=== PATIENT | male | born 1945 | race Caucasian/White ===

== ENCOUNTER 2023-09-18 09:21 | Day surgery (SDC) | payer MEDICARE, OTHER ==
[2023-09-13 17:00] LABS: BASOPHILS % (AUTO) 0.9 % (0-1); EOSINOPHILS # (AUTO) 0.1 X10'3 (0-0.9); EOSINOPHILS % (AUTO) 2.8 % (0-6); LYMPHOCYTES # (AUTO) 1.2 X10'3 (1.1-4.8); LYMPHOCYTES % (AUTO) 33.8 % (21-51); MEAN CORPUSCULAR HEMOGLOBIN 32.1 PG (27.0-31.0); MEAN CORPUSCULAR HGB CONC 34.6 g/dL (33.0-36.5); MEAN CORPUSCULAR VOLUME 92.7 FL (78-98); MEAN PLATELET VOLUME 7.1 FL (7.4-10.4); MONOCYTES # (AUTO) 0.5 X10'3 (0-0.9); NEUTROPHILS # (AUTO) 1.8 X10'3 (1.8-7.7); NEUTROPHILS % (AUTO) 49.5 % (42-75); PRE OP HEMATOCRIT 41.6 % (42.0-52.0); PRE OP HEMOGLOBIN 14.4 g/dL (14.0-17.9); PRE OP PLATELET COUNT 223 X10'3 (140-440); PRE OP WHITE BLOOD COUNT 3.6 10'3 (4.8-10.8); RED BLOOD COUNT 4.49 X10'6 (4.70-6.10); RED CELL DISTRIBUTION WIDTH 14.5 % (11.5-14.5)
[2023-09-13 17:00] LABS: BILIRUBIN,URINE NEGATIVE (Neg); CLARITY,URINE CLEAR (Clear); COLOR,URINE YELLOW (Yellow); GLUCOSE, URINE NEGATIVE (Neg); KETONES,URINE NEGATIVE (Neg); LEUKOCYTE ESTERASE ,URINE NEGATIVE (Neg); NITRITES, URINE NEGATIVE (Neg); OCCULT BLOOD,URINE NEGATIVE (Neg); PROTEIN,URINE NEGATIVE (Neg); UROBILINOGEN,URINE 0.2 E.U/dL (0.2-1.0)
[2023-09-13 17:09] LABS: UA COLLECTION TYPE CLN CATCH MIDSTREAM
[2023-09-13 17:13] LABS: ALBUMIN 3.9 G/DL (3.4-5.0); ALBUMIN/GLOBULIN RATIO 1.2 (1.1-1.5); ALKALINE PHOSPHATASE 48 IU/L (46-116); BLOOD UREA NITROGEN 20 MG/DL (7-18); CALCIUM 8.8 MG/DL (8.5-10.1); CHLORIDE 105 MMOL/L (99-107); PRE OP ALT 20 U/L (30-65); PRE OP ANION GAP 6 (8-16); PRE OP AST 18 U/L (10-37); PRE OP BILIRUB, TOTAL 0.7 MG/DL (0.0-1.0); PRE OP GLUCOSE 84 MG/DL (70-104); PRE OP POTASSIUM 4.1 MMOL/L (3.4-5.1); PRE OP SODIUM 140 MMOL/L (135-145); TOTAL CARBON DIOXIDE 28.9 MMOL/L (24-32); TOTAL PROTEIN 7.1 G/DL (6.4-8.2); eGFR > 90 ML/MIN
[~2023-09-18] VITALS: Ht 175.3 cm; Wt 65.6 kg
[2023-09-18] VITALS (14 sets, daily range): BP systolic 135–159; BP diastolic 62–74; PULSE 43–99; RESP 12–16; TEMP 97.6; O2SAT 94–99
[2023-09-18] MEDS: cefazolin 2gm/D5W 100mL 100 ML IV ONE (05:30)
[~2023-09-18 09:21] MED LIST: CENTRUM; TADA10TA PO; [UNRECOGNIZED DRUG - OTHER]
[2023-09-18] MEDS: ringers solution, lacted 1,000 ML IV SCH (09:51)
[2023-09-18] MEDS: famotidine 20mg tablet PO ONE (09:51)
[2023-09-18] MEDS ORDERED: midazolam 1 mg/ML 2ml injection ONE (14:01)
[2023-09-18] MEDS ORDERED: fentaNYL/PF 50MCG/1 ML 2ML syringe ONE ×2 (14:01→14:39)
[2023-09-18] MEDS ORDERED: propofol inj 20 ML IV ONE (14:01)
[2023-09-18] MEDS ORDERED: ringers solution, lacted 1,000 ML IV SCH (14:05)
[2023-09-18] MEDS ORDERED: meperidine/PF 25mg/ml syringe IV PRN ×2 (14:05)
[2023-09-18] MEDS ORDERED: ondansetron/PF 4mg/2ml inj IV PRN (14:05)
[2023-09-18] MEDS ORDERED: morphine 2 MG/ML inj. syringe IV PRN (14:05)
[2023-09-18] MEDS ORDERED: morphine 4 MG/ML inj SYRINge IV PRN (14:05)
[2023-09-18] MEDS ORDERED: proCHLORperazine 10 MG/2 ml inj IV PRN (14:05)
[2023-09-18] MEDS ORDERED: glycopyrrolate 0.2mg/ml inj ONE ×2 (14:06→15:13)
[2023-09-18] MEDS ORDERED: sevoflurane 250ml liquid IH ONE (14:14)
[2023-09-18] MEDS ORDERED: acetaminophen 1000 MG/100ml vial IV ONE (14:14)
[2023-09-18] MEDS ORDERED: rocuronium 10mg/ml inj IV ONE (14:14)
[2023-09-18] MEDS ORDERED: dexamethasone sod phosphate 4mg/ml inj. ONE (14:37)
[2023-09-18] MEDS: BUPIVAcaine/PF 2.5mg/ml (0.25%) 10ml vial ONE (14:51)
[2023-09-18] MEDS ORDERED: neostigmine methylsulfate 1 MG/ML 10ml vial ONE (15:12)
[2023-09-18] MEDS ORDERED: ondansetron/PF 4mg/2ml inj ONE (15:12)
[2023-09-18] MEDS: meperidine/PF 25mg/ml syringe IV PRN (16:15)
[2023-09-18] MEDS: HYDROcodone/acetaminophen 10/325mg tab PO ONE (16:31)
[2023-09-19] MEDS ORDERED: FLO0.4C PO (11:10)
== END 2023-09-18 17:07 | disposition home or self-care (01) ==
LOC: PAS 09:21
PROVIDERS: ATTEND Surgery
DX: K42.9 Umbilical hernia without obstruction or gangrene (principal); K40.91 Unilateral inguinal hernia, without obstruction or gangrene, recurrent; Z79.899 Other long term (current) drug therapy; Z87.891 Personal history of nicotine dependence; Z98.890 Other specified postprocedural states
CPT/HCPCS: 36415; 49591; 80053; 81003; 82948; 85025; 93005; C1781; J0131; J0690; J1100; J2175; J2250; J2405; J2704; J2710; J3010; J3490; J7030; J7120; Z7506; Z7508; Z7512; A4618; A7000

== ENCOUNTER 2023-09-19 09:42 | Emergency (ER) | payer MEDICARE, OTHER ==
[~2023-09-19] VITALS: Ht 172.7 cm; Wt 67.7 kg
[2023-09-19 09:59] VITALS: BP 177/81; PULSE 67; TEMP 98.4; O2SAT 97
[2023-09-19] MEDS: LidoCAINE 2% Topical Jelly 11mL syringe MM ONE (10:27)
[2023-09-19 10:36] LABS: BILIRUBIN,URINE NEGATIVE (Neg); COLOR,URINE YELLOW (Yellow); GLUCOSE, URINE NEGATIVE (Neg); KETONES,URINE TRACE mg/dl (Neg); LEUKOCYTE ESTERASE ,URINE NEGATIVE (Neg); NITRITES, URINE NEGATIVE (Neg); OCCULT BLOOD,URINE NEGATIVE (Neg); PROTEIN,URINE NEGATIVE (Neg); UROBILINOGEN,URINE 0.2 E.U/dL (0.2-1.0)
[2023-09-19 10:52] VITALS: RESP 16
[2023-09-19 10:52] LABS: CLARITY,URINE SLIGHTLY CLOUDY (Clear)
[2023-09-19 10:53] LABS: UA COLLECTION TYPE CLN CATCH MIDSTREAM
[2023-09-19 10:56] LABS: WBC,URINE 0-4 /HPF (0-4)
[2023-09-19 10:57] LABS: BACTERIA,URINE FEW /HPF (Neg)
[2023-09-19 10:59] LABS: SQUAMOUS EPITHELIAL CELL,UR FEW /LPF (FEW)
[2023-09-19 11:01] LABS: MUCUS STRANDS FEW /LPF (Neg)
[2023-09-19] MEDS ORDERED: FLO0.4C PO (11:10)
== END 2023-09-19 11:26 | disposition home or self-care (01) ==
LOC: ER 09:42
DX: R33.9 Retention of urine, unspecified (principal); Z88.8 Allergy status to other drugs, medicaments and biological substances; Z79.899 Other long term (current) drug therapy
CPT/HCPCS: 51702; 81001; 99284; A4314